=== PATIENT | female | born 1970 | race Caucasian/White ===

== ENCOUNTER 2018-11-03 11:59 | Outpatient (CLI) | payer OTHER | END 2018-11-03 12:00 | disposition home or self-care (01) | LOC: BICMAMMO 11:59 | PROVIDERS: ATTEND Obstetrics & Gynecology | DX: Z12.31 Encounter for screening mammogram for malignant neoplasm of breast (principal) | CPT/HCPCS: 77063; 77067 ==

== ENCOUNTER 2019-08-29 07:50 | Outpatient (CLI) | payer OTHER ==
--- NOTE | 2019-08-29 08:19 | ULT ---
ABDOMINAL ULTRASOUND HISTORY: Abdominal pain. FINDINGS: Liver: Right hepatic lobe is not visualized secondary to partial hepatic resection. This is noted on CT abdomen on 03/24/2017. The remaining visualized portions of the liver demonstrate a normal sonographic appearance. Gallbladder: Not visualized compatible with cholecystectomy. Common duct: Common duct is normal in caliber for postcholecystectomy changes measuring [address] Pancreas: The limited visualized pancreas demonstrates a normal sonographic appearance. IVC: Limited visualized IVC has a normal sonographic appearance. Aorta: The aorta is normal in caliber. Spleen: Within normal limits. Kidneys: The right kidney measures 9.7 cm in length and demonstrates a normal sonographic appearance. The left kidney measures 11.6 cm in length. A small 0.8 cm anechoic structure is seen in the inferior pole left kidney most compatible with a cyst. There is a tiny echogenic focus seen in the delgado perior pole left kidney demonstrating posterior shadowing, and findings are most compatible with a nonobstructing superior pole left renal calculus measuring approximately 4 mm. No hydronephrosis is s een bilaterally.. IMPRESSION: 1. Small inferior pole left renal cyst with nonobstructing superior pole left renal calculus. Multipl e bilateral renal calculi were seen on prior CT abdomen in 2017. However, additional renal calculi are difficult to definitely visualized on this exam. There is no hydronephrosis. 2. Findings related to patient's history of right hepatic lobe resection. 3. Cholecystectomy.
== END 2019-08-29 07:51 | disposition home or self-care (01) ==
LOC: BICULT 07:50
PROVIDERS: ATTEND Physician Assistant
DX: R10.9 Unspecified abdominal pain (principal); N20.0 Calculus of kidney; N28.1 Cyst of kidney, acquired; Z90.49 Acquired absence of other specified parts of digestive tract
CPT/HCPCS: 76700

== ENCOUNTER 2020-10-24 13:29 | Outpatient (CLI) | payer OTHER ==
--- NOTE | 2020-10-24 16:40 | MMO ---
Bilateral MAMMO Bilat Screen [facility]. CLINICAL HISTORY: Patient is 50 years old and is seen for screening. The patient has no family history of breast cancer. The patient has no personal history of cancer. VIEWS: The views performed were: bilateral craniocaudal with tomosynthesis and bilateral mediolateral oblique with tomosynthesis. FILMS COMPARED: The present examination has been compared to prior imaging studies performed at [facility] on 05/01/2014, 11/27/2015, 01/15/2017 and 11/03/2018. This study has been interpreted with the assistance of computer-aided detection. MAMMOGRAM FINDINGS: There are scattered fibroglandular densities. There are no suspicious masses, suspicious calcifications, or new areas of architectural distortion. IMPRESSION: THERE IS NO MAMMOGRAPHIC EVIDENCE OF MALIGNANCY. A ROUTINE FOLLOW-UP MAMMOGRAM IN 1 YEAR IS RECOMMENDED. THE RESULTS OF THIS EXAM WERE SENT TO THE PATIENT. ACR BI-RADS Category 1 - Negative MAMMOGRAPHY NOTE: 1. A negative mammogram report should not delay a biopsy if a dominant of clinically suspicious mass is present. 2. Approximately 10% to 15% of breast cancers are not detected by mammography. 3. Adenosis and dense breasts may obscure an underlying neoplasm. Reported by: GAB NAGEL MD Electonically Signed: [id number]
== END 2020-10-24 13:30 | disposition home or self-care (01) ==
LOC: BICMAMMO 13:29
PROVIDERS: ATTEND Physician Assistant
DX: Z12.31 Encounter for screening mammogram for malignant neoplasm of breast (principal)
CPT/HCPCS: 77063; 77067

== ENCOUNTER 2021-02-13 11:25 | Day surgery (SDC) | payer BC ==
[2021-02-13] MEDS ORDERED: Iothalamate Meglumine 60% 50 ML VIAL FS ONE (11:38)
[2021-02-13] MEDS ORDERED: Fentanyl 100 MCG/2 ML VIAL ONE (12:03)
[2021-02-13] MEDS ORDERED: Ondansetron PF 4 MG/2 ML Vial ONE (12:16)
[2021-02-13] MEDS ORDERED: ePHEDrine 50 MG/ML VIAL ONE (12:16)
[2021-02-13] MEDS ORDERED: Lidocaine 1% PF 5 ML VIAL ONE (12:16)
[2021-02-13] MEDS ORDERED: PROPOFOL 200 MG/20 ML VIAL ONE (12:16)
== END 2021-02-13 15:20 | disposition home or self-care (01) ==
LOC: SDC 11:25
PROVIDERS: ATTEND Urology
PROC: 0T788DZ Dilation of Bilateral Ureters with Intraluminal Device, Via Natural or Artificial Opening Endoscopic (ICD-10-PCS; principal; 2021-02-13)
DX: N20.1 Calculus of ureter (principal); N35.92 Unspecified urethral stricture, female; Z79.899 Other long term (current) drug therapy
CPT/HCPCS: 74420; 87077; 87086; 87186; J0690; J2405; J2704; J3010; J3490; Q9961

== ENCOUNTER 2021-02-18 13:49 | Outpatient (CLI) | payer BC ==
[2021-02-18 15:52] LABS: Bilirubin Neg (Negative); Blood, Urine 250 (Negative); Clarity Cloudy (Clear); Glucose, Urine (Dipstick) Normal (Negative); Ketone, Urine 150 mg/dL (Negative); Leukocyte 500 (Negative); Nitrite Negative (Negative); Protein, Urine (Dipstick) 100 mg/dl (Neg-Trace); Urobilinogen Normal mg/dL (Less than 2)
[2021-02-18 16:10] LABS: RBC/HPF Greater than 50 HPF (0-3)
[2021-02-18 16:11] LABS: Bacteria/HPF 1+ HPF (None Seen); Renal Epithelial 0-3 HPF (None Seen); Squamous Epithelial 0-3 HPF (0-3)
[2021-02-18 16:12] LABS: Mucous/LPF Rare LPF (<2+)
[2021-02-19 04:50] LABS: SARS-CoV-2 PCR by NAA Not Detected (NotDetected)
== END 2021-02-18 13:50 | disposition home or self-care (01) ==
LOC: LABBT 13:49
PROVIDERS: ATTEND Urology
DX: Z01.812 Encounter for preprocedural laboratory examination (principal); N20.1 Calculus of ureter; Z20.822 Contact with and (suspected) exposure to COVID-19
CPT/HCPCS: 81001; 87086; 87635; U0003; U0005

== ENCOUNTER 2021-02-19 19:54 | Emergency (ER) | payer BC ==
[2021-02-19 20:30] LABS: Clarity CLOUDY (Clear); Specific Gravity, Urine 1.014 (1.002-1.036); pH, Urine 6.9 (5.0-9.0)
[2021-02-19 20:31] LABS: Bilirubin Unable to Interpret (Negative); Blood, Urine Unable to Interpret (Negative); Glucose, Urine (Dipstick) Unable to Interpret mg/dL (Negative); Ketone, Urine Unable to Interpret mg/dL (Negative); Leukocyte Unable to Interpret Leu/uL (Negative); Nitrite Unable to Interpret (Negative); Protein, Urine (Dipstick) Unable to Interpret mg/dL (Neg-Trace); Urobilinogen UNABLE TO INTERPRET mg/dL (Less than 2)
[2021-02-19 20:33] LABS: RBC/HPF Greater than 50 HPF (0-3)
[2021-02-19 20:43] LABS: #Eosinphils 0.2 thou/uL (0.0-0.7); #Lymphocytes 2.1 thou/uL (1.20-3.40); #Monocytes 0.5 thou/uL (0.11-0.59); #Neutrophils 2.9 thou/uL (1.40-6.50); %Basophils 0.3 % (0.0-1.0); %Eosinophils 3.4 % (0.0-10.0); %Lymphocytes 37.2 % (21.0-51.0); %Monocytes 8.2 % (0.0-10.0); %Neutrophils 50.9 % (42.0-75.0); Hemoglobin 15.3 g/dL (12.0-16.0); Mean Corpuscular HGB CONC 34.9 g/dL (32.0-36.0); Mean Corpuscular Hemoglobin 29.9 pg (27.0-31.0); Mean Corpuscular Volume 85.6 fL (78.0-98.0); Mean Platelet Volume 6.9 fL (7.4-10.4); Platelet Count 193 thou/uL (130-400); RBC Distribution Width 12.2 % (11.5-14.5); Red Blood Cell (RBC) Count 5.11 mill/uL (4.20-5.40); White Blood Cell (WBC) Count 5.7 thou/uL (4.8-10.8)
[2021-02-19 21:04] LABS: ALT (SGPT) 12 U/L (8-55); AST (SGOT) 19 U/L (5-34); Albumin 4.1 g/dL (3.5-5.0); Alkaline Phosphatase 107 U/L (40-110); Anion Gap 14 mmol/L (10-20); BUN (Urea Nitrogen) 8 mg/dL (7.0-18.7); Bilirubin, Total 0.7 mg/dL (0.2-1.2); Calc. Creatinine Clearance 0 mL/min (70-130); Calcium 8.9 mg/dL (7.8-10.44); Carbon Dioxide 25 mmol/L (22-29); Chloride 103 mmol/L (98-107); Globulin 2.9 g/dL (2.4-3.5); Glucose 88 mg/dL (70-105); Sodium 139 mmol/L (136-145)
[2021-02-19] MEDS ORDERED: Morphine 4 MG/ML VIAL ONE (21:47)
[2021-02-19] MEDS ORDERED: Ondansetron PF 4 MG/2 ML Vial ONE (21:47)
== END 2021-02-19 23:57 | disposition home or self-care (01) ==
LOC: ERS 19:54
DX: N20.2 Calculus of kidney with calculus of ureter (principal)
CPT/HCPCS: 36415; 74018; 80053; 81003; 81015; 85025; 96374; 96375; J2270; J2405

== ENCOUNTER 2021-02-21 11:19 | Day surgery (SDC) | payer BC ==
[2021-02-20 13:33] VITALS: BMI 27.4
[2021-02-21] MEDS ORDERED: Levofloxacin 500 mg/D5W 100 ml Premix Bag ONE (13:41)
[2021-02-21] MEDS ORDERED: Ondansetron PF 4 MG/2 ML Vial ONE (13:53)
[2021-02-21] MEDS ORDERED: Sodium Chloride 0.9% 100 ML ONE (14:08)
[2021-02-21] MEDS ORDERED: cefTRIAXone\\ROCEPHIN 1 GM VIAL ONE (14:08)
[2021-02-21] MEDS ORDERED: Iothalamate Meglumine 60% 50 ML VIAL FS ONE (14:10)
[2021-02-21] MEDS ORDERED: Famotidine/PF 20 mg/2ml Vial ONE (14:14)
[2021-02-21] MEDS ORDERED: Fentanyl 100 MCG/2 ML VIAL ONE (14:14)
[2021-02-21] MEDS ORDERED: SUGAMMADEX SODIUM 200 MG/2 ML VIAL ONE (14:14)
[2021-02-21] MEDS ORDERED: Ketorolac Tromethamine 30 MG/ML VIAL ONE (14:29)
[2021-02-21] MEDS ORDERED: PROPOFOL 200 MG/20 ML VIAL ONE (14:29)
[2021-02-21] MEDS ORDERED: Rocuronium Bromide 10 MG/ML (10ML VIAL) ONE (14:29)
[2021-02-21] MEDS ORDERED: Dexamethasone 20 MG/5 ML VIAL ONE (14:29)
[2021-02-21] MEDS ORDERED: PHENYLEPHRINE-NS 100 MCG/ML 10 ML SYRINGE ONE (14:29)
[2021-02-21] MEDS ORDERED: Lidocaine 1% PF 5 ML VIAL ONE (14:29)
[2021-02-21] MEDS ORDERED: Metoclopramide HCl 10 MG/2 ML VIAL ONE (14:29)
[2021-02-21] MEDS ORDERED: Meperidine HCl/PF 25 MG/ML VIAL ONE (17:11)
[2021-02-21] MEDS ORDERED: Promethazine HCl 25 MG/ML VIAL ONE (17:16)
[2021-03-01 19:12] LABS: CA Oxalate Dihydrate 60 % (.); CA Oxalate Monohydrate 30 % (.); Color Tan (.); Stone Weight 158 mg (.)
== END 2021-02-21 19:30 | disposition home or self-care (01) ==
LOC: SDC 11:19
PROVIDERS: ATTEND Urology
PROC: 0TC68ZZ Extirpation of Matter from Right Ureter, Via Natural or Artificial Opening Endoscopic (ICD-10-PCS; principal; 2021-02-21)
PROC: 0T788DZ Dilation of Bilateral Ureters with Intraluminal Device, Via Natural or Artificial Opening Endoscopic (ICD-10-PCS; principal; 2021-02-21)
PROC: 0TC78ZZ Extirpation of Matter from Left Ureter, Via Natural or Artificial Opening Endoscopic (ICD-10-PCS; principal; 2021-02-21)
DX: N20.1 Calculus of ureter (principal); Z79.899 Other long term (current) drug therapy
CPT/HCPCS: 74018; 74420; 82365; 88300; J0696; J1100; J1885; J1956; J2175; J2405; J2550; J2704; J2765; J3010; J3490; Q9961; S0028

== ENCOUNTER 2021-03-17 11:32 | Emergency (ER) | payer BC ==
[~2021-03-17 11:32] MED LIST: Iopamidol-370 76% 500 ML 1 ML ONE
[2021-03-17 12:30] LABS: Bacteria/HPF None Seen HPF (None Seen); Bilirubin Negative (Negative); Blood, Urine Negative (Negative); Clarity Clear (Clear); Glucose, Urine (Dipstick) Normal (Negative); Ketone, Urine Negative (Negative); Leukocyte 500 Leu/uL (Negative); Nitrite Negative (Negative); Protein, Urine (Dipstick) Negative (Neg-Trace); RBC/HPF 0-3 HPF (0-3); Specific Gravity, Urine 1.006 (1.002-1.036); Squamous Epithelial 0-3 HPF (0-3); Urobilinogen Normal mg/dL (Less than 2); pH, Urine 6.5 (5.0-9.0)
[2021-03-17 12:32] LABS: Pregnancy Test - Urine (BHCG) Negative (Negative); Pregu Control Background? CLEAR/WHITE (CLR/WHITE); Pregu Control Bar Appear? YES (CONTROL BAR); Specific Gravity 1.006 (1.002-1.036)
[2021-03-17 12:38] LABS: #Eosinphils 0.1 thou/uL (0.0-0.7); #Lymphocytes 2.6 thou/uL (1.20-3.40); #Monocytes 0.5 thou/uL (0.11-0.59); #Neutrophils 2.7 thou/uL (1.40-6.50); %Basophils 0.8 % (0.0-1.0); %Eosinophils 1.8 % (0.0-10.0); %Lymphocytes 44.3 % (21.0-51.0); %Monocytes 8.1 % (0.0-10.0); %Neutrophils 44.9 % (42.0-75.0); Hemoglobin 14.8 g/dL (12.0-16.0); Mean Corpuscular HGB CONC 34.3 g/dL (32.0-36.0); Mean Corpuscular Hemoglobin 29.6 pg (27.0-31.0); Mean Corpuscular Volume 86.4 fL (78.0-98.0); Mean Platelet Volume 7.9 fL (7.4-10.4); Platelet Count 198 thou/uL (130-400); RBC Distribution Width 12.5 % (11.5-14.5); Red Blood Cell (RBC) Count 4.99 mill/uL (4.20-5.40); White Blood Cell (WBC) Count 5.9 thou/uL (4.8-10.8)
[2021-03-17 13:07] LABS: ALT (SGPT) 11 U/L (8-55); AST (SGOT) 17 U/L (5-34); Albumin 4.7 g/dL (3.5-5.0); Alkaline Phosphatase 121 U/L (40-110); Anion Gap 13 mmol/L (10-20); BUN (Urea Nitrogen) 11 mg/dL (7.0-18.7); Bilirubin, Total 0.6 mg/dL (0.2-1.2); Calc. Creatinine Clearance 0 mL/min (70-130); Calcium 9.6 mg/dL (7.8-10.44); Carbon Dioxide 27 mmol/L (22-29); Chloride 102 mmol/L (98-107); Globulin 3.1 g/dL (2.4-3.5); Glucose 91 mg/dL (70-105); Lipase 47 U/L (8-78); Potassium 3.3 mmol/L (3.5-5.1); Protein, Total 7.8 g/dL (6.0-8.3); Sodium 139 mmol/L (136-145)
[2021-03-17] MEDS ORDERED: traMADol HCl 50 MG TAB ONE (14:10)
[2021-03-17] MEDS ORDERED: Ondansetron ODT 4 MG TAB ONE (14:15)
== END 2021-03-17 14:34 | disposition home or self-care (01) ==
LOC: ERS 11:32
DX: N13.2 Hydronephrosis with renal and ureteral calculous obstruction (principal); Z79.899 Other long term (current) drug therapy
CPT/HCPCS: 74177; 80053; 81003; 81015; 81025; 83690; 85025; Q0162; Q9967

== ENCOUNTER 2021-05-27 22:43 | Emergency (ER) | payer BC, OTHER ==
[2021-05-27 23:01] LABS: Bacteria/HPF 1+ HPF (None Seen); Bilirubin Negative (Negative); Blood, Urine Negative (Negative); Clarity Clear (Clear); Glucose, Urine (Dipstick) Normal (Negative); Ketone, Urine Negative (Negative); Leukocyte 500 Leu/uL (Negative); Nitrite Negative (Negative); Protein, Urine (Dipstick) Negative (Neg-Trace); RBC/HPF 0-3 HPF (0-3); Specific Gravity, Urine 1.016 (1.002-1.036); Squamous Epithelial 0-3 HPF (0-3); Urobilinogen Normal mg/dL (Less than 2); WBC/HPF 21-50 HPF (0-3)
[2021-05-27 23:02] LABS: Pregnancy Test - Urine (BHCG) Negative (Negative); Pregu Control Background? CLEAR/WHITE (CLR/WHITE); Pregu Control Bar Appear? YES (CONTROL BAR); Specific Gravity 1.016 (1.002-1.036)
== END 2021-05-28 01:11 | disposition home or self-care (01) ==
LOC: ERS 22:43
DX: N39.0 Urinary tract infection, site not specified (principal)
CPT/HCPCS: 74176; 81003; 81015; 81025; 87077; 87086

== ENCOUNTER 2021-07-02 12:43 | Emergency (ER) | payer OTHER ==
[2021-07-02 13:16] LABS: #Eosinphils 0.1 thou/uL (0.0-0.7); #Monocytes 0.5 thou/uL (0.11-0.59); %Basophils 0.7 % (0.0-1.0); %Eosinophils 1.7 % (0.0-10.0); %Lymphocytes 35.8 % (21.0-51.0); %Monocytes 8.5 % (0.0-10.0); %Neutrophils 53.3 % (42.0-75.0); Hemoglobin 14.5 g/dL (12.0-16.0); Mean Corpuscular HGB CONC 32.6 g/dL (32.0-36.0); Mean Corpuscular Volume 88.9 fL (78.0-98.0); Mean Platelet Volume 7.2 fL (7.4-10.4); Platelet Count 186 thou/uL (130-400); Red Blood Cell (RBC) Count 4.99 mill/uL (4.20-5.40); White Blood Cell (WBC) Count 5.6 thou/uL (4.8-10.8)
[2021-07-02 13:37] LABS: ALT (SGPT) 16 U/L (8-55); AST (SGOT) 18 U/L (5-34); Albumin 4.4 g/dL (3.5-5.0); Alkaline Phosphatase 111 U/L (40-110); Anion Gap 7 mmol/L (10-20); BUN (Urea Nitrogen) 9 mg/dL (9.8-20.1); Bilirubin, Total 0.6 mg/dL (0.2-1.2); Calc. Creatinine Clearance 0 mL/min (70-130); Calcium 9.4 mg/dL (7.8-10.44); Carbon Dioxide 30 mmol/L (22-29); Chloride 107 mmol/L (98-107); Globulin 2.8 g/dL (2.4-3.5); Glucose 91 mg/dL (70-105); Lipase 32 U/L (8-78); Potassium 3.9 mmol/L (3.5-5.1); Protein, Total 7.2 g/dL (6.0-8.3); Sodium 140 mmol/L (136-145)
[2021-07-02 15:17] LABS: Bilirubin Negative (Negative); Blood, Urine Negative (Negative); Clarity Clear (Clear); Glucose, Urine (Dipstick) Normal (Negative); Ketone, Urine Negative (Negative); Leukocyte Negative Leu/uL (Negative); Nitrite Negative (Negative); Protein, Urine (Dipstick) Negative (Neg-Trace); Specific Gravity, Urine 1.013 (1.002-1.036); Urobilinogen Normal mg/dL (Less than 2); pH, Urine 7.5 (5.0-9.0)
== END 2021-07-02 17:22 | disposition home or self-care (01) ==
LOC: ERS 12:43
DX: R10.32 Left lower quadrant pain (principal); Z87.442 Personal history of urinary calculi
CPT/HCPCS: 36415; 74177; 80053; 81003; 83690; 85025